=== PATIENT | female | born 1955 | race Caucasian/White ===

== ENCOUNTER 2016-10-16 15:26 | Emergency (ER) | payer BC ==
[2016-10-16] MEDS ORDERED: methylPREDNISolone INJ 125 MG/2 ML VIAL (J2930) As Ordered ONE (17:02)
[2016-10-16] MEDS ORDERED: MOXIFLOXACIN 400 MG/250 ML IV BAG (AVELOX) (J2280) As Ordered ONE (17:36)
[2016-10-16 17:44] LABS: BASO % 0.1 % (0.0-1.0); EOS # 0.1 K/mm3 (0.0-0.50); EOS % 0.5 % (0.0-3.0); LARGE UNSTAINED CELL # 0.1 K/mm3 (0.0-0.4); LARGE UNSTAINED CELL % 0.6 % (0.0-4.0); LYMPH # 0.9 K/mm3 (1.5-4.5); LYMPH % 4.6 % (24.0-44.0); MEAN CORPUSCULAR HEMOGLOBIN 33.6 pg (27.0-33.0); MEAN CORPUSCULAR HGB CONC 34.9 g/dl (32.0-36.5); MEAN CORPUSCULAR VOLUME 96.1 fl (80.0-96.0); MONO # 0.8 K/mm3 (0.0-0.8); MONO % 4.3 % (0.0-5.0); NEUTROPHILS # 17.4 K/mm3 (1.8-7.7); NEUTROPHILS % 89.8 % (36.0-66.0); PLATELET COUNT, AUTOMATED 329 k/mm3 (150-450); RED CELL DISTRIBUTION WIDTH 11.3 % (11.5-14.5); WHITE BLOOD COUNT 19.4 K/mm3 (4.0-10.0)
[2016-10-16 18:04] LABS: ANION GAP 11 MEQ/L (8-16); BLOOD UREA NITROGEN 12 MG/DL (7-18); CALCIUM LEVEL 9.4 MG/DL (8.5-10.1); CARBON DIOXIDE LEVEL 26 MEQ/L (21-32); CHLORIDE LEVEL 100 MEQ/L (98-107); CREATININE FOR GFR 0.86 MG/DL (0.55-1.02); GLOMERULAR FILTRATION RATE > 60.0 (>51); GLUCOSE, FASTING 102 MG/DL (70-105); POTASSIUM SERUM 3.1 MEQ/L (3.5-5.1); SODIUM LEVEL 137 MEQ/L (136-145)
[2016-10-16] MEDS ORDERED: POTASSIUM CHL PWD 20 MEQ PACKET As Ordered ONE (18:55)
--- NOTE | 2016-10-16 19:20 | EDDOCDS ---
Physician Documentation [facility] Name: Cheryl Muñoz Age: 61 yrs Sex: Female : 1955 Arrival Date: 10/16/2016 Time: 15:26 Bed I3 / M3 Private MD: Nicci Golden A Disposition: 10/16/16 19:10 Discharged to Home/Self Care. Impression: Pneumonia, unspecified organism, Hypokalemia. - Condition is Stable. - Discharge Instructions: Potassium Content of Foods, Pneumonia, Adult, [id number]. - Prescriptions for Moxifloxacin 400 mg Oral Tablet - take 1 tablet by ORAL route once daily; 10 tablet. - Medication Reconciliation, Local Pharmacy Hours form. - Follow up: Leon Boyd MD; When: 1 - 2 days; Reason: Further diagnostic work-up, Recheck today's complaints, Continuance of care. - Problem is new. - Symptoms are unchanged. Historical: - Allergies: no known allergies; - Home Meds: 1. q-rony 2. q-rony 80 inhaler twice a day (Last dose: 10/16/2016 05:00) 3. mutlivitamin daily (Last dose: 10/16/2016 05:00) 4. Iron CR 250 mg Oral cpER daily (Last dose: 10/16/2016 05:00) 5. Fish Oil Unknown Oral Unknown daily (Last dose: 10/16/2016 05:00) 6. Advil 200 mg Oral tab 3 tabs every 4 hours (Last dose: 10/16/2016 13:00) - PMHx: farmers lung disease; closed angle glaucoma; stage II melanoma (arm); - PSHx: Cesearean Section; eye surgery; - Social history: Smoking status: Patient states former smoker of tobacco. Patient/guardian denies using alcohol, street drugs, No barriers to communication noted, The patient speaks fluent Chinese, Speaks appropriately for age. - Family history: Not pertinent. - : The pt / caregiver states he / she is not on anticoagulants. Home medication list is obtained from the patient. - Exposure Risk Screening:: None identified. Vital Signs: 10/16 15:28 BP 169 / 80; Pulse 121; Resp 20; Temp 98.7(O); Pulse Ox 95% ; Weight 56.7 kg / 125 lbs; cmb Height 5 ft. 2 in. (157.48 cm); 19:11 BP 116 / 54; Pulse 103; Resp 18; Temp 98.6; Pulse Ox 94% ; Pain 0/10; ajs 15:28 Body Mass Index 22.86 (56.70 kg, 157.48 cm) cmb MDM: 16:51 IV Saline Lock ordered. ar2 16:51 -Blood Culture (Adults Only), peripheral from different site, or from device/port/PICC ar2 etc. if present ordered. 16:51 Solu-MEDROL 125 mg IVP once ordered. ar2 16:51 Moxifloxacin 400 mg IV at 400 mg/hr once over 60 mins ordered. ar2 16:51 NS 0.9% 1000 ml IV at bolus once ordered. ar2 16:52 CBC with Diff Ordered. EDMS 16:52 MED Profile Ordered. EDMS 16:52 -Blood Culture Ordered. EDMS 16:52 Outside Films for Reading Ordered. EDMS 16:57 -Blood Culture (Adults Only), peripheral from different site, or from device/port/PICC jrd etc. if present complete. 16:59 BLOOD CULTURES Ordered. EDMS 17:01 Lactic Acid (Villegas tube on ice) Ordered. EDMS 17:11 Financial registration complete. b 17:16 [facility] Payment Agreement was scanned into [employer] ([employer]) and attached to record. gjb 18:02 CBC with Diff Reviewed. ar2 18:33 MED Profile Reviewed. btw 18:33 Lactic Acid (Villegas tube on ice) Reviewed. btw 18:49 Potassium Chloride Packet 20 mEq PO once ordered. btw Administered Medications: 17:32 Drug: Solu-MEDROL 125 mg [Solu-Medrol 500 mg intravenous solution (125 mg)] Route: IVP; kc3 Site: left forearm; 17:32 Drug: NS 0.9% 1000 ml [sodium chloride 0.9 % intravenous solution] Route: IV; Rate: kc3 bolus; Site: left forearm; 19:17 Follow up: IV Status: Infusion discontinued ck1 17:44 Drug: Moxifloxacin 400 mg [moxifloxacin 400 mg/250 mL-sodium chloride(iso) intravenous kc3 piggyback] Route: IV; Rate: 400 mg/hr; Infused Over: 60 mins; Site: left forearm; 18:58 Drug: Potassium Chloride 20 mEq [potassium chloride 20 mEq oral packet (1 packets)] ck1 Route: PO; Signatures: Dispatcher [employer] EDMS Ana Troy RN RN ck1 Parvez De oSuza PA-C PAMandi ar2 Adam Chavarria PA PA btw Lenora Vasquez RN RN ttb Edilberto Perea, MUSIC RESEARCHER MUSIC RESEARCHER jrd Yana Sandy RN RN kc3 Kimberly Trujillo The chart was reviewed and I authenticate all verbal orders and agree with the evaluation and treatment provided.Corrections: (The following items were deleted from the chart) 17:04 16:52 LACTIC ACID LEVEL, LACTATE+LAB ordered. EDMS EDMS Attachments: 17:16 [facility] [place] [facility] [place] Agreement gjjoshua MTDD
--- NOTE | 2016-10-16 19:20 | EDDOCDS ---
Nurse's Notes [facility] Name: Cheryl Muñoz Age: 61 yrs Sex: Female : 1955 Arrival Date: 10/16/2016 Time: 15:26 Bed I3 / M3 Private MD: Nicci Golden A Diagnosis: Pneumonia, unspecified organism;Hypokalemia Presentation: 10/16 15:36 Presenting complaint: Patient states: sent for for "blood work and steroids". Cold ttb last week and cough x1 week. Productive cough. Some SOB. Denies pain. Nasal congestion x2 weeks. Adult Sepsis Screening: The patient does not have new or worsening altered mentation. Patient's respiratory rate is less than 22. Systolic blood pressure is greater than 100. Patient has a qSOFA score of 0- Negative Sepsis Screen. Suicide/Homicide risk assessment- the patient denies having any suicidal and/or homicidal ideations and does not present with any other emotional, behavioral or mental health complaints. Status: Patient is not a marine service manager or dependent. Transition of care: patient was not received from another setting of care. 15:36 Acuity: NOELLE Level 4 ttb 15:36 Method Of Arrival: Walkin/Carried/Asstd ttb Triage Assessment: 15:43 General: Appears in no apparent distress, well nourished, well groomed, Behavior is ttb appropriate for age, cooperative, pleasant. Pain: Denies pain. HIV screening NA for this visit Offered previously. Neurological: Level of Consciousness is awake, alert. EENT: Reports nasal congestion nasal discharge. Cardiovascular: Chest pain is denied. Respiratory: Airway is patent Respiratory effort is even, unlabored, Reports shortness of breath cough that is productive, the patient has mild shortness of breath. GI: Denies nausea, vomiting, pain. Derm: Skin is normal. Historical: - Allergies: no known allergies; - Home Meds: 1. q-rony 2. q-rony 80 inhaler twice a day (Last dose: 10/16/2016 05:00) 3. mutlivitamin daily (Last dose: 10/16/2016 05:00) 4. Iron CR 250 mg Oral cpER daily (Last dose: 10/16/2016 05:00) 5. Fish Oil Unknown Oral Unknown daily (Last dose: 10/16/2016 05:00) 6. Advil 200 mg Oral tab 3 tabs every 4 hours (Last dose: 10/16/2016 13:00) - PMHx: farmers lung disease; closed angle glaucoma; stage II melanoma (arm); - PSHx: Cesearean Section; eye surgery; - Social history: Smoking status: Patient states former smoker of tobacco. Patient/guardian denies using alcohol, street drugs, No barriers to communication noted, The patient speaks fluent Mongolian, Speaks appropriately for age. - Family history: Not pertinent. - : The pt / caregiver states he / she is not on anticoagulants. Home medication list is obtained from the patient. - Exposure Risk Screening:: None identified. Screenin:33 Screening information is obtained from the patient. Fall risk: No risks identified. kc3 Assistance ADL's: requires no assistance with activities of daily living. Abuse/DV Screen: The patient / caregiver reports he/she is: not in a situation that causes fear, pain or injury. Nutritional screening: No deficits noted. Advance Directives: Currently, there is no health care proxy. home support is adequate. Assessment: 17:32 General: Appears in no apparent distress, comfortable, Behavior is appropriate for age, kc3 cooperative. Pain: Denies pain. Neurological: Level of Consciousness is awake, alert, obeys commands, Oriented to person, place, time. EENT: Reports nasal congestion. Respiratory: Respiratory effort is even, unlabored, Reports cough that is productive. Derm: Skin is pink, warm & dry. 18:16 General: Appears in no apparent distress, comfortable, Behavior is appropriate for age, ck1 cooperative. Pain: Denies pain. Neurological: Level of Consciousness is awake, alert, obeys commands, Oriented to person, place, time. Respiratory: Respiratory effort is even, unlabored. GI: Denies nausea, vomiting. Derm: Skin is pink, warm & dry. 19:18 General: Appears in no apparent distress, comfortable, Behavior is appropriate for age, ck1 cooperative. Pain: Denies pain. Neurological: Level of Consciousness is awake, alert, obeys commands, Oriented to person, place, time. Respiratory: Respiratory effort is unlabored, Respiratory pattern is regular, symmetrical. GI: No deficits noted. Derm: Skin is pink, warm & dry. Vital Signs: 15:28 BP 169 / 80; Pulse 121; Resp 20; Temp 98.7(O); Pulse Ox 95% ; Weight 56.7 kg; Height 5 cmb ft. 2 in. (157.48 cm); 19:11 BP 116 / 54; Pulse 103; Resp 18; Temp 98.6; Pulse Ox 94% ; Pain 0/10; ajs 15:28 Body Mass Index 22.86 (56.70 kg, 157.48 cm) cmb Vitals: 15:28 Log In Time: October 16, 2016 at 15:26. cmb ED Course: 15:28 Patient visited by Lindsey Gray. cmb 15:28 Nicci Golden is Private Physician. cmb 15:28 Patient moved to Waiting cmb 15:29 Patient moved to Pre RCE cmb 15:38 Triage Initiated ttb 16:06 Patient moved to Triage 2 mlb1 16:23 Parvez De Souza PA-C is PHCP. ar2 16:23 Cristofer Sanchez MD is Attending Physician. ar2 16:30 Patient visited by Parvez De Souza PA-C. ar2 16:53 Patient moved to I3 / M3 jf3 17:02 Patient visited by Ana Troy,DAVID. ck1 17:16 [facility] Payment Agreement was scanned into [employer] and attached to record. gjb 17:26 Patient name changed from Cheryl\\S\\\\S\\[place]\\S\\ to Cheryl\\S\\ \\S\\[place]. EDMS 17:31 BLOOD CULTURES Sent. kc3 17:31 Lactic Acid (Villegas tube on ice) Sent. kc3 17:32 -Blood Culture Sent. kc3 17:32 MED Profile Sent. kc3 17:32 CBC with Diff Sent. kc3 17:33 The patient / caregiver is instructed regarding the plan of care and ED course. kc3 17:33 Inserted saline lock: 20 gauge in left forearm and blood collected. The patient kc3 tolerated the procedure well. 17:34 Patient visited by Yana Sandy,DAVID. kc3 18:04 Patient visited by Ana Troy,RN. ck1 18:06 PHCP role handed off by Parvez De Souza PA-C btw 18:06 Adam Chavarria PA is PHCP. btw 18:38 Patient visited by Ana Troy,DAVID. ck1 18:58 Patient visited by Ana Troy,DAVID. ck1 19:10 Leon Boyd MD is Referral Physician. btw 19:11 Patient visited by Jaclyn Carrasco. ajs 19:17 Discontinued lock intact, bleeding controlled, pressure dressing applied, No ck1 redness/swelling at site. No procedures done that require assistance. Administered Medications: 17:32 Drug: Solu-MEDROL 125 mg [Solu-Medrol 500 mg intravenous solution (125 mg)] Route: IVP; kc3 Site: left forearm; 17:32 Drug: NS 0.9% 1000 ml [sodium chloride 0.9 % intravenous solution] Route: IV; Rate: kc3 bolus; Site: left forearm; 19:17 Follow up: IV Status: Infusion discontinued ck1 17:44 Drug: Moxifloxacin 400 mg [moxifloxacin 400 mg/250 mL-sodium chloride(iso) intravenous kc3 piggyback] Route: IV; Rate: 400 mg/hr; Infused Over: 60 mins; Site: left forearm; 18:58 Drug: Potassium Chloride 20 mEq [potassium chloride 20 mEq oral packet (1 packets)] ck1 Route: PO; Order Results: Lab Order: CBC with Diff; SPEC'M 10/16/16 17:22 Test: WHITE BLOOD COUNT; Value: 19.4; Range: 4.0-10.0; Abnormal: Above high normal; Units: K/mm3; Status: F Test: RED BLOOD COUNT; Value: 4.15; Range: 4.00-5.40; Units: M/mm3; Status: F Test: HEMOGLOBIN; Value: 13.9; Range: 12.0-16.0; Units: g/dl; Status: F Test: HEMATOCRIT; Value: 39.9; Range: 36.0-47.0; Units: %; Status: F Test: MEAN CORPUSCULAR VOLUME; Value: 96.1; Range: 80.0-96.0; Abnormal: Above high normal; Units: fl; Status: F Test: MEAN CORPUSCULAR HEMOGLOBIN; Value: 33.6; Range: 27.0-33.0; Abnormal: Above high normal; Units: pg; Status: F Test: MEAN CORPUSCULAR HGB CONC; Value: 34.9; Range: 32.0-36.5; Units: g/dl; Status: F Test: RED CELL DISTRIBUTION WIDTH; Value: 11.3; Range: 11.5-14.5; Abnormal: Below low normal; Units: %; Status: F Test: PLATELET COUNT, AUTOMATED; Value: 329; Range: 150-450; Units: k/mm3; Status: F Test: NEUTROPHILS %; Value: 89.8; Range: 36.0-66.0; Abnormal: Above high normal; Units: %; Status: F Test: LYMPH %; Value: 4.6; Range: 24.0-44.0; Abnormal: Below low normal; Units: %; Status: F Test: MONO %; Value: 4.3; Range: 0.0-5.0; Units: %; Status: F Test: EOS %; Value: 0.5; Range: 0.0-3.0; Units: %; Status: F Test: BASO %; Value: 0.1; Range: 0.0-1.0; Units: %; Status: F Test: LARGE UNSTAINED CELL %; Value: 0.6; Range: 0.0-4.0; Units: %; Status: F Test: NEUTROPHILS #; Value: 17.4; Range: 1.8-7.7; Abnormal: Above high normal; Units: K/mm3; Status: F Test: LYMPH #; Value: 0.9; Range: 1.5-4.5; Abnormal: Below low normal; Units: K/mm3; Status: F Test: MONO #; Value: 0.8; Range: 0.0-0.8; Units: K/mm3; Status: F Test: EOS #; Value: 0.1; Range: 0.0-0.50; Units: K/mm3; Status: F Test: BASO #; Value: 0.0; Range: 0.0-0.2; Units: K/mm3; Status: F Test: LARGE UNSTAINED CELL #; Value: 0.1; Range: 0.0-0.4; Units: K/mm3; Status: F Lab Order: MED Profile; SPEC'M 10/16/16 17:22 Test: GLUCOSE, FASTING; Value: 102; Range: 70-105; Units: MG/DL; Status: F Test: BLOOD UREA NITROGEN; Value: 12; Range: 7-18; Units: MG/DL; Status: F Test: CREATININE FOR GFR; Value: 0.86; Range: 0.55-1.02; Units: MG/DL; Status: F Test: GLOMERULAR FILTRATION RATE; Value: > 60.0; Range: >51; Status: F Test: SODIUM LEVEL; Value: 137; Range: 136-145; Units: MEQ/L; Status: F Test: POTASSIUM SERUM; Value: 3.1; Range: 3.5-5.1; Abnormal: Below low normal; Units: MEQ/L; Status: F Test: CHLORIDE LEVEL; Value: 100; Range: 98-107; Units: MEQ/L; Status: F Test: CARBON DIOXIDE LEVEL; Value: 26; Range: 21-32; Units: MEQ/L; Status: F Test: ANION GAP; Value: 11; Range: 8-16; Units: MEQ/L; Status: F Test: CALCIUM LEVEL; Value: 9.4; Range: 8.5-10.1; Units: MG/DL; Status: F Test Note: ; Units are mL/min/1.73 m2 Chronic Kidney Disease Staging per NKF: Stage I & II GFR >=60 Normal to Mildly Decreased Stage III GFR 30-59 Moderately Decreased Stage IV GFR 15-29 Severely Decreased Stage V GFR <15 Very Little GFR Left ESRD GFR <15 on CLOTH FINISHING RANGE OPERATOR CHIEF Lab Order: Lactic Acid (Villegas tube on ice); SPEC'M 10/16/16 17:22 Test: LACTIC ACID LEVEL, LACTATE; Value: 1.3; Range: 0.4-2.0; Units: MMOL/L; Status: F Outcome: 19:10 Discharge ordered by Provider. btw 19:17 Discharge Assessment: Patient awake, alert and oriented x 3. No cognitive and/or ck1 functional deficits noted. Patient verbalized understanding of disposition instructions. patient administered narcotics - no. The following High Risk Discharge criteria are identified: None. Discharged to home ambulatory. Condition: stable. Discharge instructions given to patient, Instructed on discharge instructions, follow up and referral plans. medication usage, Demonstrated understanding of instructions, medications, Pt was receptive of discharge instructions/ teaching. Prescriptions given X 1. No special radiology studies were completed. Property :Personal belongings accompany Pt. 19:18 Patient left the ED. ck1 Signatures: Dispatcher [employer] EDMS Darryn Parisi RN RN mlb1 Ana TroyRN RN ck1 Parvez De Souza PA-C PA-C ar2 Adam Chavarria PA PA btJaclyn Cornejo [place] cmb Conner, Teresa, RN RN ttb Yana Sandy RN RN kc3 Lamont Diaz RN RN jf3 Kimberly Trujillo MTDD
--- NOTE | 2016-10-18 20:19 | EDDOCDS ---
Physician Documentation [facility] Name: Cheryl Muñoz Age: 61 yrs Sex: Female : 1955 Arrival Date: 10/16/2016 Time: 15:26 Bed I3 / M3 Private MD: Nicci Golden A Disposition: 10/16/16 19:10 Discharged to Home/Self Care. Impression: Pneumonia, unspecified organism, Hypokalemia. - Condition is Stable. - Discharge Instructions: Potassium Content of Foods, Pneumonia, Adult, [id number]. - Prescriptions for Moxifloxacin 400 mg Oral Tablet - take 1 tablet by ORAL route once daily; 10 tablet. - Medication Reconciliation, Local Pharmacy Hours form. - Follow up: Leon Boyd MD; When: 1 - 2 days; Reason: Further diagnostic work-up, Recheck today's complaints, Continuance of care. - Problem is new. - Symptoms are unchanged. Historical: - Allergies: no known allergies; - Home Meds: 1. q-rony 2. q-rony 80 inhaler twice a day (Last dose: 10/16/2016 05:00) 3. mutlivitamin daily (Last dose: 10/16/2016 05:00) 4. Iron CR 250 mg Oral cpER daily (Last dose: 10/16/2016 05:00) 5. Fish Oil Unknown Oral Unknown daily (Last dose: 10/16/2016 05:00) 6. Advil 200 mg Oral tab 3 tabs every 4 hours (Last dose: 10/16/2016 13:00) - PMHx: farmers lung disease; closed angle glaucoma; stage II melanoma (arm); - PSHx: Cesearean Section; eye surgery; - Social history: Smoking status: Patient states former smoker of tobacco. Patient/guardian denies using alcohol, street drugs, No barriers to communication noted, The patient speaks fluent Arabic, Speaks appropriately for age. - Family history: Not pertinent. - : The pt / caregiver states he / she is not on anticoagulants. Home medication list is obtained from the patient. - Exposure Risk Screening:: None identified. Vital Signs: 10/16 15:28 BP 169 / 80; Pulse 121; Resp 20; Temp 98.7(O); Pulse Ox 95% ; Weight 56.7 kg / 125 lbs; cmb Height 5 ft. 2 in. (157.48 cm); 19:11 BP 116 / 54; Pulse 103; Resp 18; Temp 98.6; Pulse Ox 94% ; Pain 0/10; ajs 15:28 Body Mass Index 22.86 (56.70 kg, 157.48 cm) cmb MDM: 16:51 IV Saline Lock ordered. ar2 16:51 -Blood Culture (Adults Only), peripheral from different site, or from device/port/PICC ar2 etc. if present ordered. 16:51 Solu-MEDROL 125 mg IVP once ordered. ar2 16:51 Moxifloxacin 400 mg IV at 400 mg/hr once over 60 mins ordered. ar2 16:51 NS 0.9% 1000 ml IV at bolus once ordered. ar2 16:52 CBC with Diff Ordered. EDMS 16:52 MED Profile Ordered. EDMS 16:52 -Blood Culture Ordered. EDMS 16:52 Outside Films for Reading Ordered. EDMS 16:57 -Blood Culture (Adults Only), peripheral from different site, or from device/port/PICC jrd etc. if present complete. 16:59 BLOOD CULTURES Ordered. EDMS 17:01 Lactic Acid (Villegas tube on ice) Ordered. EDMS 17:11 Financial registration complete. gjb 17:16 [facility] Payment Agreement was scanned into [employer] and attached to record. gjb 18:02 CBC with Diff Reviewed. ar2 18:33 MED Profile Reviewed. btw 18:33 Lactic Acid (Villegas tube on ice) Reviewed. btw 18:49 Potassium Chloride Packet 20 mEq PO once ordered. btw 10/17 09:00 T-Sheet-- Draft Copy was scanned into [employer] and attached to record. gb Administered Medications: 10/16 17:32 Drug: Solu-MEDROL 125 mg [Solu-Medrol 500 mg intravenous solution (125 mg)] Route: IVP; kc3 Site: left forearm; 17:32 Drug: NS 0.9% 1000 ml [sodium chloride 0.9 % intravenous solution] Route: IV; Rate: kc3 bolus; Site: left forearm; 19:17 Follow up: IV Status: Infusion discontinued ck1 17:44 Drug: Moxifloxacin 400 mg [moxifloxacin 400 mg/250 mL-sodium chloride(iso) intravenous kc3 piggyback] Route: IV; Rate: 400 mg/hr; Infused Over: 60 mins; Site: left forearm; 18:58 Drug: Potassium Chloride 20 mEq [potassium chloride 20 mEq oral packet (1 packets)] ck1 Route: PO; Signatures: Dispatcher [employer] EDMS Delia Zayas, Reg Reg gb Ana TroyRN RN ck1 Parvez De Souza PA-C PAMandi ar2 Adam Chavarria PA PA btw Conner, Teresa, RN RN ttb Edilberto Perea, SENTHIL CUSTOMER EXPERIENCE STRATEGIST jrd Yana Sandy RN RN kc3 Kimberly Trujillo The chart was reviewed and I authenticate all verbal orders and agree with the evaluation and treatment provided.Corrections: (The following items were deleted from the chart) 17:04 16:52 LACTIC ACID LEVEL, LACTATE+LAB ordered. EDMS EDMS Attachments: 17:16 [facility] Payment Agreement gjb 10/17 09:00 T-Sheet-- Draft Copy gb Chart Complete MTDD
--- NOTE | 2016-10-18 20:19 | EDDOCDS ---
Physician Documentation [facility] Name: Cheryl Muñoz Age: 61 yrs Sex: Female : 1955 Arrival Date: 10/16/2016 Time: 15:26 Bed I3 / M3 Private MD: Nicci Golden A Disposition: 10/16/16 19:10 Discharged to Home/Self Care. Impression: Pneumonia, unspecified organism, Hypokalemia. - Condition is Stable. - Discharge Instructions: Potassium Content of Foods, Pneumonia, Adult, [id number]-[id number]. - Prescriptions for Moxifloxacin 400 mg Oral Tablet - take 1 tablet by ORAL route once daily; 10 tablet. - Medication Reconciliation, Local Pharmacy Hours form. - Follow up: Leon Boyd MD; When: 1 - 2 days; Reason: Further diagnostic work-up, Recheck today's complaints, Continuance of care. - Problem is new. - Symptoms are unchanged. Historical: - Allergies: no known allergies; - Home Meds: 1. q-rony 2. q-rony 80 inhaler twice a day (Last dose: 10/16/2016 05:00) 3. mutlivitamin daily (Last dose: 10/16/2016 05:00) 4. Iron CR 250 mg Oral cpER daily (Last dose: 10/16/2016 05:00) 5. Fish Oil Unknown Oral Unknown daily (Last dose: 10/16/2016 05:00) 6. Advil 200 mg Oral tab 3 tabs every 4 hours (Last dose: 10/16/2016 13:00) - PMHx: farmers lung disease; closed angle glaucoma; stage II melanoma (arm); - PSHx: Cesearean Section; eye surgery; - Social history: Smoking status: Patient states former smoker of tobacco. Patient/guardian denies using alcohol, street drugs, No barriers to communication noted, The patient speaks fluent Malay, Speaks appropriately for age. - Family history: Not pertinent. - : The pt / caregiver states he / she is not on anticoagulants. Home medication list is obtained from the patient. - Exposure Risk Screening:: None identified. Vital Signs: 10/16 15:28 BP 169 / 80; Pulse 121; Resp 20; Temp 98.7(O); Pulse Ox 95% ; Weight 56.7 kg / 125 lbs; cmb Height 5 ft. 2 in. (157.48 cm); 19:11 BP 116 / 54; Pulse 103; Resp 18; Temp 98.6; Pulse Ox 94% ; Pain 0/10; ajs 15:28 Body Mass Index 22.86 (56.70 kg, 157.48 cm) cmb MDM: 16:51 IV Saline Lock ordered. ar2 16:51 -Blood Culture (Adults Only), peripheral from different site, or from device/port/PICC ar2 etc. if present ordered. 16:51 Solu-MEDROL 125 mg IVP once ordered. ar2 16:51 Moxifloxacin 400 mg IV at 400 mg/hr once over 60 mins ordered. ar2 16:51 NS 0.9% 1000 ml IV at bolus once ordered. ar2 16:52 CBC with Diff Ordered. EDMS 16:52 MED Profile Ordered. EDMS 16:52 -Blood Culture Ordered. EDMS 16:52 Outside Films for Reading Ordered. EDMS 16:57 -Blood Culture (Adults Only), peripheral from different site, or from device/port/PICC jrd etc. if present complete. 16:59 BLOOD CULTURES Ordered. EDMS 17:01 Lactic Acid (Villegas tube on ice) Ordered. EDMS 17:11 Financial registration complete. gjb 17:16 [facility] Payment Agreement was scanned into [employer] and attached to record. gjb 18:02 CBC with Diff Reviewed. ar2 18:33 MED Profile Reviewed. btw 18:33 Lactic Acid (Villegas tube on ice) Reviewed. btw 18:49 Potassium Chloride Packet 20 mEq PO once ordered. btw 10/17 09:00 T-Sheet-- Draft Copy was scanned into [employer] and attached to record. gb Administered Medications: 10/16 17:32 Drug: Solu-MEDROL 125 mg [Solu-Medrol 500 mg intravenous solution (125 mg)] Route: IVP; kc3 Site: left forearm; 17:32 Drug: NS 0.9% 1000 ml [sodium chloride 0.9 % intravenous solution] Route: IV; Rate: kc3 bolus; Site: left forearm; 19:17 Follow up: IV Status: Infusion discontinued ck1 17:44 Drug: Moxifloxacin 400 mg [moxifloxacin 400 mg/250 mL-sodium chloride(iso) intravenous kc3 piggyback] Route: IV; Rate: 400 mg/hr; Infused Over: 60 mins; Site: left forearm; 18:58 Drug: Potassium Chloride 20 mEq [potassium chloride 20 mEq oral packet (1 packets)] ck1 Route: PO; Signatures: Dispatcher [employer] EDMS Delia Zayas, Reg Reg gb Ana TroyRN RN ck1 Parvez De Souza PA-C PAMandi ar2 Adam Chavarria PA PA btw Conner, Teresa, RN RN ttb Edilberto Perea, SNETHIL VOCATIONAL EDUCATION TEACHER jrd Yana Sandy RN RN kc3 Kimberly Trujillo The chart was reviewed and I authenticate all verbal orders and agree with the evaluation and treatment provided.Corrections: (The following items were deleted from the chart) 17:04 16:52 LACTIC ACID LEVEL, LACTATE+LAB ordered. EDMS EDMS Attachments: 17:16 [facility] Payment Agreement gjb 10/17 09:00 T-Sheet-- Draft Copy gb Chart Complete MTDD
--- NOTE | 2016-10-18 20:19 | EDDOCDS ---
Nurse's Notes [facility] Name: Cheryl Muñoz Age: 61 yrs Sex: Female : 1955 Arrival Date: 10/16/2016 Time: 15:26 Bed I3 / M3 Private MD: Nicci Golden A Diagnosis: Pneumonia, unspecified organism;Hypokalemia Presentation: 10/16 15:36 Presenting complaint: Patient states: sent for for "blood work and steroids". Cold ttb last week and cough x1 week. Productive cough. Some SOB. Denies pain. Nasal congestion x2 weeks. Adult Sepsis Screening: The patient does not have new or worsening altered mentation. Patient's respiratory rate is less than 22. Systolic blood pressure is greater than 100. Patient has a qSOFA score of 0- Negative Sepsis Screen. Suicide/Homicide risk assessment- the patient denies having any suicidal and/or homicidal ideations and does not present with any other emotional, behavioral or mental health complaints. Status: Patient is not a support services rep or dependent. Transition of care: patient was not received from another setting of care. 15:36 Acuity: NOELLE Level 4 ttb 15:36 Method Of Arrival: Walkin/Carried/Asstd ttb Triage Assessment: 15:43 General: Appears in no apparent distress, well nourished, well groomed, Behavior is ttb appropriate for age, cooperative, pleasant. Pain: Denies pain. HIV screening NA for this visit Offered previously. Neurological: Level of Consciousness is awake, alert. EENT: Reports nasal congestion nasal discharge. Cardiovascular: Chest pain is denied. Respiratory: Airway is patent Respiratory effort is even, unlabored, Reports shortness of breath cough that is productive, the patient has mild shortness of breath. GI: Denies nausea, vomiting, pain. Derm: Skin is normal. Historical: - Allergies: no known allergies; - Home Meds: 1. q-rony 2. q-rony 80 inhaler twice a day (Last dose: 10/16/2016 05:00) 3. mutlivitamin daily (Last dose: 10/16/2016 05:00) 4. Iron CR 250 mg Oral cpER daily (Last dose: 10/16/2016 05:00) 5. Fish Oil Unknown Oral Unknown daily (Last dose: 10/16/2016 05:00) 6. Advil 200 mg Oral tab 3 tabs every 4 hours (Last dose: 10/16/2016 13:00) - PMHx: farmers lung disease; closed angle glaucoma; stage II melanoma (arm); - PSHx: Cesearean Section; eye surgery; - Social history: Smoking status: Patient states former smoker of tobacco. Patient/guardian denies using alcohol, street drugs, No barriers to communication noted, The patient speaks fluent Albanian, Speaks appropriately for age. - Family history: Not pertinent. - : The pt / caregiver states he / she is not on anticoagulants. Home medication list is obtained from the patient. - Exposure Risk Screening:: None identified. Screenin:33 Screening information is obtained from the patient. Fall risk: No risks identified. kc3 Assistance ADL's: requires no assistance with activities of daily living. Abuse/DV Screen: The patient / caregiver reports he/she is: not in a situation that causes fear, pain or injury. Nutritional screening: No deficits noted. Advance Directives: Currently, there is no health care proxy. home support is adequate. Assessment: 17:32 General: Appears in no apparent distress, comfortable, Behavior is appropriate for age, kc3 cooperative. Pain: Denies pain. Neurological: Level of Consciousness is awake, alert, obeys commands, Oriented to person, place, time. EENT: Reports nasal congestion. Respiratory: Respiratory effort is even, unlabored, Reports cough that is productive. Derm: Skin is pink, warm & dry. 18:16 General: Appears in no apparent distress, comfortable, Behavior is appropriate for age, ck1 cooperative. Pain: Denies pain. Neurological: Level of Consciousness is awake, alert, obeys commands, Oriented to person, place, time. Respiratory: Respiratory effort is even, unlabored. GI: Denies nausea, vomiting. Derm: Skin is pink, warm & dry. 19:18 General: Appears in no apparent distress, comfortable, Behavior is appropriate for age, ck1 cooperative. Pain: Denies pain. Neurological: Level of Consciousness is awake, alert, obeys commands, Oriented to person, place, time. Respiratory: Respiratory effort is unlabored, Respiratory pattern is regular, symmetrical. GI: No deficits noted. Derm: Skin is pink, warm & dry. Vital Signs: 15:28 BP 169 / 80; Pulse 121; Resp 20; Temp 98.7(O); Pulse Ox 95% ; Weight 56.7 kg; Height 5 cmb ft. 2 in. (157.48 cm); 19:11 BP 116 / 54; Pulse 103; Resp 18; Temp 98.6; Pulse Ox 94% ; Pain 0/10; ajs 15:28 Body Mass Index 22.86 (56.70 kg, 157.48 cm) cmb Vitals: 15:28 Log In Time: October 16, 2016 at 15:26. cmb ED Course: 15:28 Patient visited by Lindsey Gray. cmb 15:28 Nicci Golden is Private Physician. cmb 15:28 Patient moved to Waiting cmb 15:29 Patient moved to Pre RCE cmb 15:38 Triage Initiated ttb 16:06 Patient moved to Triage 2 mlb1 16:23 Parvez De Souza PA-C is PHCP. ar2 16:23 Cristofer Sanchez MD is Attending Physician. ar2 16:30 Patient visited by Parvez De Souza PA-C. ar2 16:53 Patient moved to I3 / M3 jf3 17:02 Patient visited by Ana Troy,DAVID. ck1 17:16 [facility] Payment Agreement was scanned into [employer] and attached to record. gjb 17:26 Patient name changed from Cheryl\\S\\\\S\\[place]\\S\\ to Cheryl\\S\\ \\S\\[place]. EDMS 17:31 BLOOD CULTURES Sent. kc3 17:31 Lactic Acid (Villegas tube on ice) Sent. kc3 17:32 -Blood Culture Sent. kc3 17:32 MED Profile Sent. kc3 17:32 CBC with Diff Sent. kc3 17:33 The patient / caregiver is instructed regarding the plan of care and ED course. kc3 17:33 Inserted saline lock: 20 gauge in left forearm and blood collected. The patient kc3 tolerated the procedure well. 17:34 Patient visited by Yana Sandy,DAVID. kc3 18:04 Patient visited by Ana Troy,RN. ck1 18:06 PHCP role handed off by Parvez De Souza PA-C btw 18:06 Adam Chavarria PA is PHCP. btw 18:38 Patient visited by Ana Troy,RN. ck1 18:58 Patient visited by Ana Troy,DAVID. ck1 19:10 Leon Boyd MD is Referral Physician. btw 19:11 Patient visited by Jaclyn Carrasco. ajs 19:17 Discontinued lock intact, bleeding controlled, pressure dressing applied, No ck1 redness/swelling at site. No procedures done that require assistance. 10/17 09:00 T-Sheet-- Draft Copy was scanned into [employer] and attached to record. gb Administered Medications: 10/16 17:32 Drug: Solu-MEDROL 125 mg [Solu-Medrol 500 mg intravenous solution (125 mg)] Route: IVP; kc3 Site: left forearm; 17:32 Drug: NS 0.9% 1000 ml [sodium chloride 0.9 % intravenous solution] Route: IV; Rate: kc3 bolus; Site: left forearm; 19:17 Follow up: IV Status: Infusion discontinued ck1 17:44 Drug: Moxifloxacin 400 mg [moxifloxacin 400 mg/250 mL-sodium chloride(iso) intravenous kc3 piggyback] Route: IV; Rate: 400 mg/hr; Infused Over: 60 mins; Site: left forearm; 18:58 Drug: Potassium Chloride 20 mEq [potassium chloride 20 mEq oral packet (1 packets)] ck1 Route: PO; Order Results: Lab Order: CBC with Diff; SPEC'M 10/16/16 17:22 Test: WHITE BLOOD COUNT; Value: 19.4; Range: 4.0-10.0; Abnormal: Above high normal; Units: K/mm3; Status: F Test: RED BLOOD COUNT; Value: 4.15; Range: 4.00-5.40; Units: M/mm3; Status: F Test: HEMOGLOBIN; Value: 13.9; Range: 12.0-16.0; Units: g/dl; Status: F Test: HEMATOCRIT; Value: 39.9; Range: 36.0-47.0; Units: %; Status: F Test: MEAN CORPUSCULAR VOLUME; Value: 96.1; Range: 80.0-96.0; Abnormal: Above high normal; Units: fl; Status: F Test: MEAN CORPUSCULAR HEMOGLOBIN; Value: 33.6; Range: 27.0-33.0; Abnormal: Above high normal; Units: pg; Status: F Test: MEAN CORPUSCULAR HGB CONC; Value: 34.9; Range: 32.0-36.5; Units: g/dl; Status: F Test: RED CELL DISTRIBUTION WIDTH; Value: 11.3; Range: 11.5-14.5; Abnormal: Below low normal; Units: %; Status: F Test: PLATELET COUNT, AUTOMATED; Value: 329; Range: 150-450; Units: k/mm3; Status: F Test: NEUTROPHILS %; Value: 89.8; Range: 36.0-66.0; Abnormal: Above high normal; Units: %; Status: F Test: LYMPH %; Value: 4.6; Range: 24.0-44.0; Abnormal: Below low normal; Units: %; Status: F Test: MONO %; Value: 4.3; Range: 0.0-5.0; Units: %; Status: F Test: EOS %; Value: 0.5; Range: 0.0-3.0; Units: %; Status: F Test: BASO %; Value: 0.1; Range: 0.0-1.0; Units: %; Status: F Test: LARGE UNSTAINED CELL %; Value: 0.6; Range: 0.0-4.0; Units: %; Status: F Test: NEUTROPHILS #; Value: 17.4; Range: 1.8-7.7; Abnormal: Above high normal; Units: K/mm3; Status: F Test: LYMPH #; Value: 0.9; Range: 1.5-4.5; Abnormal: Below low normal; Units: K/mm3; Status: F Test: MONO #; Value: 0.8; Range: 0.0-0.8; Units: K/mm3; Status: F Test: EOS #; Value: 0.1; Range: 0.0-0.50; Units: K/mm3; Status: F Test: BASO #; Value: 0.0; Range: 0.0-0.2; Units: K/mm3; Status: F Test: LARGE UNSTAINED CELL #; Value: 0.1; Range: 0.0-0.4; Units: K/mm3; Status: F Lab Order: MED Profile; SPEC'M 10/16/16 17:22 Test: GLUCOSE, FASTING; Value: 102; Range: 70-105; Units: MG/DL; Status: F Test: BLOOD UREA NITROGEN; Value: 12; Range: 7-18; Units: MG/DL; Status: F Test: CREATININE FOR GFR; Value: 0.86; Range: 0.55-1.02; Units: MG/DL; Status: F Test: GLOMERULAR FILTRATION RATE; Value: > 60.0; Range: >51; Status: F Test: SODIUM LEVEL; Value: 137; Range: 136-145; Units: MEQ/L; Status: F Test: POTASSIUM SERUM; Value: 3.1; Range: 3.5-5.1; Abnormal: Below low normal; Units: MEQ/L; Status: F Test: CHLORIDE LEVEL; Value: 100; Range: 98-107; Units: MEQ/L; Status: F Test: CARBON DIOXIDE LEVEL; Value: 26; Range: 21-32; Units: MEQ/L; Status: F Test: ANION GAP; Value: 11; Range: 8-16; Units: MEQ/L; Status: F Test: CALCIUM LEVEL; Value: 9.4; Range: 8.5-10.1; Units: MG/DL; Status: F Test Note: ; Units are mL/min/1.73 m2 Chronic Kidney Disease Staging per NKF: Stage I & II GFR >=60 Normal to Mildly Decreased Stage III GFR 30-59 Moderately Decreased Stage IV GFR 15-29 Severely Decreased Stage V GFR <15 Very Little GFR Left ESRD GFR <15 on SCREW DOWN Lab Order: -Blood Culture; SPEC'M 10/16/16 17:22 Test: BLOOD CULTURE; Value: No growth after 24 hours . All specimens observed; Status: F Test: BLOOD CULTURE; Value: for 5 days. Results final at that time.; Status: F Test: BLOOD CULTURE; Value: No Growth after 48 hours. All Specimens observed; Status: F Test: BLOOD CULTURE; Value: for 7 days. Results final at that time.; Status: F Lab Order: BLOOD CULTURES; SPEC'M 10/16/16 17:22 Test: BLOOD CULTURE; Value: No growth after 24 hours . All specimens observed; Status: F Test: BLOOD CULTURE; Value: for 5 days. Results final at that time.; Status: F Test: BLOOD CULTURE; Value: No Growth after 48 hours. All Specimens observed; Status: F Test: BLOOD CULTURE; Value: for 7 days. Results final at that time.; Status: F Lab Order: Lactic Acid (Villegas tube on ice); SPEC'M 10/16/16 17:22 Test: LACTIC ACID LEVEL, LACTATE; Value: 1.3; Range: 0.4-2.0; Units: MMOL/L; Status: F Outcome: 19:10 Discharge ordered by Provider. btw 19:17 Discharge Assessment: Patient awake, alert and oriented x 3. No cognitive and/or ck1 functional deficits noted. Patient verbalized understanding of disposition instructions. patient administered narcotics - no. The following High Risk Discharge criteria are identified: None. Discharged to home ambulatory. Condition: stable. Discharge instructions given to patient, Instructed on discharge instructions, follow up and referral plans. medication usage, Demonstrated understanding of instructions, medications, Pt was receptive of discharge instructions/ teaching. Prescriptions given X 1. No special radiology studies were completed. Property :Personal belongings accompany Pt. 19:18 Patient left the ED. ck1 Signatures: Dispatcher [employer] EDMS Delia Zayas, Reg Reg waldo Parisi, Darryn Chu RN RN mlb1 Ana TroyRN RN ck1 Parvez De Souza PA-C PA-Pratima ar2 Adam Chavarria PA PA btw Jaclyn Carrasco [place] cmb Conner, Teresa, RN RN ttb Crane, Kelsi,DAVID RN nevaeh3 Lamont Diaz,RN RN jf3 Kimberly Trujillo Chart Complete MTDD
== END 2016-10-16 19:18 | disposition home or self-care (01) ==
LOC: M ED 15:26
DX: J18.1 Lobar pneumonia, unspecified organism (principal); C43.60 Malignant melanoma of unspecified upper limb, including shoulder; J67.0 Farmer's lung; H40.20X0 Unspecified primary angle-closure glaucoma, stage unspecified; Z87.891 Personal history of nicotine dependence; Z79.899 Other long term (current) drug therapy
CPT/HCPCS: 36415; 80048; 83605; 85025; 87040; 96361; 96374; 96375; 99284; J2280; J2930

== ENCOUNTER → 2016-10-28 | Outpatient (CLI) | payer BC ==
--- NOTE | 2016-10-28 08:50 | REP ---
Chest x-ray: Two views. History: Abnormal lung prater. Follow-up pneumonia. Comparison chest x-ray November 07, 2015. Comparison is also made with the October 16, 2016 chest x-ray from [facility]. This showed a right lower lobe infiltrate. Findings: The right lower lobe infiltrate is cleared. The lungs are somewhat hyperinflated but free of infiltrate today. Pleural angles are sharp. Heart is not enlarged. Aorta is slightly tortuous as before. There are minimal degenerative changes in the thoracic spine. Impression: Mild hyperinflation. No acute infiltrate. Otherwise no acute disease. Signed by Parviz Neal MD 10/28/2016 10:18 A
== END | disposition home or self-care (01) ==
LOC: M SMT 07:59
PROVIDERS: ATTEND Internal Medicine Pulmonary Disease
DX: R91.8 Other nonspecific abnormal finding of lung field (principal)

== ENCOUNTER → 2017-12-29 | Outpatient (CLI) | payer BC ==
[2017-12-29 17:24] LABS: ALBUMIN 3.8 GM/DL (3.2-5.2); ALBUMIN/GLOBULIN RATIO 1.15 (1.00-1.93); ALKALINE PHOSPHATASE 80 U/L (45-117); ALT/SGPT 36 U/L (12-78); ANION GAP 4 MEQ/L (8-16); AST/SGOT 23 U/L (7-37); BILIRUBIN,TOTAL 0.5 MG/DL (0.2-1.0); BLOOD UREA NITROGEN 13 MG/DL (7-18); CALCIUM LEVEL 9.2 MG/DL (8.8-10.2); CARBON DIOXIDE LEVEL 32 MEQ/L (21-32); CHLORIDE LEVEL 106 MEQ/L (98-107); CHOLESTEROL LEVEL 175 MG/DL (<200); CHOLESTEROL RISK RATIO 2.692 (<5); CREATININE FOR GFR 0.78 MG/DL (0.55-1.30); GLOMERULAR FILTRATION RATE > 60.0 (>45); GLUCOSE, FASTING 83 MG/DL (70-100); HDL CHOLESTEROL 65 MG/DL (>40); LDL CHOLESTEROL 95.2 MG/DL (<100); NON-HDL-C 110 MG/DL; POTASSIUM SERUM 4.4 MEQ/L (3.5-5.1); SODIUM LEVEL 142 MEQ/L (136-145); TOTAL PROTEIN 7.1 GM/DL (6.4-8.2); TRIGLYCERIDES LEVEL 74 MG/DL (<150)
[2017-12-29 17:48] LABS: BASO # 0.1 10^3/uL (0.0-0.2); BASO % 0.8 % (0.0-1.0); EOS # 0.1 10^3/uL (0.0-0.50); EOS % 1.1 % (0.0-3.0); HEMATOCRIT 42.7 % (36.0-47.0); HEMOGLOBIN 13.9 g/dl (12.0-16.0); IMMATURE GRANULOCYTE % 0.3 % (0-3.0); LYMPH # 1.1 10^3/uL (1.5-4.5); MEAN CORPUSCULAR HEMOGLOBIN 32.3 pg (27.0-33.0); MEAN CORPUSCULAR HGB CONC 32.6 g/dl (32.0-36.5); MEAN CORPUSCULAR VOLUME 99.1 fl (80.0-96.0); MONO # 0.6 10^3/uL (0.0-0.8); MONO % 8.5 % (0.0-5.0); NEUTROPHILS # 4.8 10^3/uL (1.8-7.7); NEUTROPHILS % 73.3 % (36.0-66.0); PLATELET COUNT, AUTOMATED 293 10^3/uL (150-450); RED BLOOD COUNT 4.31 10^6/uL (4.00-5.40); RED CELL DISTRIBUTION WIDTH 11.7 % (11.5-14.5); WHITE BLOOD COUNT 6.6 10^3/uL (4.0-10.0)
== END ==
LOC: M WUC 11:17
DX: Z01.419 Encounter for gynecological examination (general) (routine) without abnormal findings (principal)
CPT/HCPCS: 80053

== ENCOUNTER 2018-05-05 09:39 | Day surgery (SDC) | payer BC ==
[~2018-05-05 09:39] MED LIST: LIDOCAINE 2% INJ 100 MG/5 ML SDV (FOR ANES.) As Ordered; PROPOFOL 200 MG/20 ML VIAL As Ordered
[2018-05-05] MEDS: NS 1,000 ML IV (09:45)
== END 2018-05-05 11:46 | disposition home or self-care (01) ==
LOC: M OPP 09:39
DX: Z12.11 Encounter for screening for malignant neoplasm of colon (principal); Z80.0 Family history of malignant neoplasm of digestive organs; J30.89 Other allergic rhinitis; Z87.891 Personal history of nicotine dependence
CPT/HCPCS: 45378

== ENCOUNTER → 2019-01-11 | Outpatient (REF) | payer OTHER ==
[~2019-01-11] MED LIST changes: +CALTCHW4 PO; +CENT1TAB19 PO; +FERR325T3 PO; -LIDOCAINE 2% INJ 100 MG/5 ML SDV (FOR ANES.) As Ordered; -PROPOFOL 200 MG/20 ML VIAL As Ordered; +QVAR80AE8 INH
== END ==
LOC: M LAB REF 17:08
PROVIDERS: ATTEND Family Medicine
DX: Z01.419 Encounter for gynecological examination (general) (routine) without abnormal findings (principal)

== ENCOUNTER → 2019-06-28 | Outpatient (CLI) | payer OTHER ==
[2019-06-28 12:54] LABS: BASO % 0.6 % (0.0-1.0); EOS # 0.1 10^3/uL (0.0-0.5); EOS % 2.1 % (0.0-3.0); HEMATOCRIT 41.7 % (36.0-47.0); HEMOGLOBIN 13.9 g/dl (12.0-15.5); LYMPH % 15.6 % (24.0-44.0); MEAN CORPUSCULAR HEMOGLOBIN 33.2 pg (27.0-33.0); MEAN CORPUSCULAR HGB CONC 33.3 g/dl (32.0-36.5); MEAN CORPUSCULAR VOLUME 99.5 fl (80.0-96.0); MONO # 0.6 10^3/uL (0.0-0.8); MONO % 8.8 % (0.0-5.0); NEUTROPHILS # 4.6 10^3/uL (1.5-8.5); NEUTROPHILS % 72.6 % (36.0-66.0); PLATELET COUNT, AUTOMATED 279 10^3/uL (150-450); RED BLOOD COUNT 4.19 10^6/uL (4.00-5.40); WHITE BLOOD COUNT 6.3 10^3/uL (4.0-10.0)
[2019-06-28 13:12] LABS: FERRITIN 254 NG/ML (8-252); IRON (FE) 116 UG/DL (50-170); PERCENT SATURATION 40.7 % (13.2-45.0); TOTAL IRON BINDING CAPACITY 285 UG/DL (250-450)
[2019-06-28 13:19] LABS: FOLATE > 24.0 NG/ML; VITAMIN B12 LEVEL 1502 PG/ML
== END ==
LOC: M WUC 10:13
PROVIDERS: ATTEND Physician Assistant
DX: D64.9 Anemia, unspecified (principal)

== ENCOUNTER → 2020-07-07 | Outpatient (CLI) | payer OTHER ==
[2020-07-07 12:31] LABS: BASO % 0.5 % (0.0-1.0); EOS # 0.1 10^3/uL (0.0-0.5); EOS % 1.3 % (0.0-3.0); HEMATOCRIT 42.4 % (36.0-47.0); HEMOGLOBIN 13.9 g/dl (12.0-15.5); LYMPH # 1.5 10^3/uL (1.5-5.0); LYMPH % 18.7 % (24.0-44.0); MEAN CORPUSCULAR HEMOGLOBIN 32.7 pg (27.0-33.0); MEAN CORPUSCULAR HGB CONC 32.8 g/dl (32.0-36.5); MEAN CORPUSCULAR VOLUME 99.8 fl (80.0-96.0); MONO # 0.5 10^3/uL (0.0-0.8); MONO % 6.7 % (0.0-5.0); NEUTROPHILS # 5.7 10^3/uL (1.5-8.5); NEUTROPHILS % 72.4 % (36.0-66.0); PLATELET COUNT, AUTOMATED 304 10^3/uL (150-450); RED BLOOD COUNT 4.25 10^6/uL (4.00-5.40); WHITE BLOOD COUNT 7.9 10^3/uL (4.0-10.0)
[2020-07-07 13:01] LABS: ALBUMIN 3.8 GM/DL (3.2-5.2); ALT/SGPT 25 U/L (12-78); BILIRUBIN,TOTAL 0.6 MG/DL (0.2-1.0); BLOOD UREA NITROGEN 13 MG/DL (7-18); CALCIUM LEVEL 9.5 MG/DL (8.8-10.2); CARBON DIOXIDE LEVEL 31 MEQ/L (21-32); CHLORIDE LEVEL 105 MEQ/L (98-107); FERRITIN 254 NG/ML (8-252); GLOMERULAR FILTRATION RATE > 60.0 (>45); GLUCOSE, FASTING 71 MG/DL (70-100); IRON (FE) 113 UG/DL (50-170); PERCENT SATURATION 38.2 % (13.2-45.0); POTASSIUM SERUM 4.3 MEQ/L (3.5-5.1); SODIUM LEVEL 140 MEQ/L (136-145); TOTAL IRON BINDING CAPACITY 296 UG/DL (250-450)
[2020-07-07 13:09] LABS: FOLATE > 24.0 NG/ML
[2020-07-07 13:24] LABS: VITAMIN B12 LEVEL 1489 PG/ML
== END ==
LOC: M WUC 10:05
PROVIDERS: ATTEND Physician Assistant
DX: D64.9 Anemia, unspecified (principal)

== ENCOUNTER → 2020-12-27 | Outpatient (CLI) | payer OTHER ==
[2020-12-27 09:58] LABS: BASO # 0.1 10^3/uL (0.0-0.2); BASO % 0.8 % (0.0-1.0); EOS # 0.1 10^3/uL (0.0-0.5); EOS % 2.2 % (0.0-3.0); HEMATOCRIT 41.9 % (36.0-47.0); HEMOGLOBIN 13.9 g/dl (12.0-15.5); LYMPH # 1.4 10^3/uL (1.5-5.0); MEAN CORPUSCULAR HEMOGLOBIN 32.9 pg (27.0-33.0); MEAN CORPUSCULAR HGB CONC 33.2 g/dl (32.0-36.5); MEAN CORPUSCULAR VOLUME 99.3 fl (80.0-96.0); MONO # 0.6 10^3/uL (0.0-0.8); MONO % 9.8 % (2.0-8.0); NEUTROPHILS % 64.9 % (36.0-66.0); PLATELET COUNT, AUTOMATED 278 10^3/uL (150-450); RED BLOOD COUNT 4.22 10^6/uL (4.00-5.40); WHITE BLOOD COUNT 6.2 10^3/uL (4.0-10.0)
[2020-12-27 10:26] LABS: CHOLESTEROL RISK RATIO 2.657 (<5); PERCENT SATURATION 36.9 % (13.2-45.0)
== END ==
LOC: M WUC 08:09
PROVIDERS: ATTEND Family Medicine
DX: D50.9 Iron deficiency anemia, unspecified (principal); Z13.220 Encounter for screening for lipoid disorders

== ENCOUNTER → 2021-01-10 | Outpatient (CLI) | payer OTHER ==
--- NOTE | 2021-01-10 11:35 | REPMRS ---
Patient History The patient states she has not had a clinical breast exam in over a year. Patient is postmenopausal. No known family history of cancer. 3D TOMOSYNTHESIS WAS PERFORMED. [facility]%. Volpara breast density c. Digital Woman Screen Mammo: January 10, 2021 - Exam #: [id number] Bilateral CC and MLO view(s) were taken. Technologist: Zhanna Noland, Technologist Prior study comparison: March 03, 2020, bilateral digital mammo screening bilat, performed at [facility]. January 11, 2019, bilateral digital mammo screening bilat, performed at [facility]. FINDINGS: The breast tissue is heterogeneously dense. This may lower the sensitivity of mammography. There has been no change in the appearance of the mammogram from the prior studies. There is a moderate amount of residual fibroglandular tissue which is fairly symmetric. There is no interval development of dominant mass, areas of architectural distortion, or clustered microcalcification typical of malignancy. Assessment: BI-RADS/ACR category 1 mammogram. Negative Mammogram. Recommendation Routine screening mammogram in 1 year (for women over age 40). This mammogram was interpreted with the aid of an FDA-approved computer-aided dectection system. Electronically Signed By: Josue Villegas MD 01/10/21 [id number]
--- NOTE | 2021-01-10 14:12 | DEXAMM ---
INDICATION: M85.80 [facility] DISRD OF BONE DENSITY AND STRUCTURE. COMPARISON: 01/11/2019 as well as other prior exams. TECHNIQUE: Bone density was measured using dual-energy x-ray absorptiometry (DEXA). FINDINGS: AP SPINE L1-L4 BMD 0.918 g/cm2 Young Adult T-Score -2.2 Age Matched Z-Score -0.7. LT FEMUR, TOTAL BMD 0.739 g/cm2 Young Adult T-Score -2.1 Age Matched Z-Score -1.0. LT NECK BMD 0.722 g/cm2 Young Adult T-Score -2.3 Age Matched Z-Score -0.9. RT FEMUR, TOTAL BMD 0.749 g/cm2 Young Adult T-Score -2.0 Age Matched Z-Score -0.9. RT NECK BMD 0.734 g/cm2 Young Adult T-Score -2.2 Age Matched Z-Score -0.8. IMPRESSION: There is low bone density of the spine. There is low bone density of the left hip. There is low bone density of the right hip. The density of the spine has decreased 19.5% since the initial exam on 05/06/2007. The density of the spine decreased 5.7% since most recent exam on 01/11/2019. The density of the left hip has decreased 19.5% since initial exam on 05/06/2007. The density of the left hip has increased 1.9% since most recent exam on 01/11/2019. The density of the right hip has decreased 19.8% since the initial exam on 05/06/2007. The density of the right hip has increased 2.7% since the most recent exam on 01/11/2019. FOLLOW-UP: Recommendation for the next bone density exam: 2 years. <Electronically signed by Josue Villegas > 01/10/21 [id number]
== END ==
LOC: M WHC 09:54
PROVIDERS: ATTEND Physician Assistant
DX: Z12.31 Encounter for screening mammogram for malignant neoplasm of breast (principal); M85.88 Other specified disorders of bone density and structure, other site; M85.851 Other specified disorders of bone density and structure, right thigh; M85.852 Other specified disorders of bone density and structure, left thigh

== ENCOUNTER → 2021-07-05 | Outpatient (REF) | payer OTHER ==
[2021-07-05 14:16] LABS: APPEARANCE, URINE CLEAR (CLEAR); BACTERIA, URINE AUTO NEGATIVE (NEGATIVE); BILIRUBIN, URINE AUTO NEGATIVE (NEGATIVE); BLOOD, URINE BLOOD NEGATIVE (NEGATIVE); COLOR, URINE YELLOW (YELLOW); GLUCOSE, URINE (UA) AUTO NEGATIVE (NEGATIVE); KETONE, URINE AUTO NEGATIVE (NEGATIVE); LEUKOCYTE ESTERASE, URINE AUTO NEGATIVE (NEGATIVE); NITRITE, URINE AUTO NEGATIVE (NEGATIVE); PROTEIN, URINE AUTO NEGATIVE (NEGATIVE); RBC, URINE AUTO 1 /HPF (0-3); SPECIFIC GRAVITY URINE AUTO 1.006 (1.002-1.035); SQUAMOUS EPITHELIAL CELL UR AU 1 /HPF (0-6); UROBILINOGEN, URINE AUTO 0.2 mg/dL (0.0-2.0); WBC, URINE AUTO 0 /HPF (0-3)
== END ==
LOC: M SMT 13:23
PROVIDERS: ATTEND Urology
DX: R31.29 Other microscopic hematuria (principal)

== ENCOUNTER → 2021-07-05 | Outpatient (CLI) | payer OTHER ==
[2021-07-05 20:53] LABS: BLOOD UREA NITROGEN 14 MG/DL (7-18); CALCIUM LEVEL 9.6 MG/DL (8.8-10.2); CARBON DIOXIDE LEVEL 33 MEQ/L (21-32); CHLORIDE LEVEL 103 MEQ/L (98-107); CREATININE FOR GFR 0.89 MG/DL (0.55-1.30); GLOMERULAR FILTRATION RATE > 60.0 (>45); GLUCOSE, FASTING 85 MG/DL (70-100); SODIUM LEVEL 140 MEQ/L (136-145)
== END ==
LOC: M WUC 15:48
PROVIDERS: ATTEND Urology
DX: R31.29 Other microscopic hematuria (principal)

== ENCOUNTER → 2021-07-18 | Outpatient (CLI) | payer OTHER ==
[~2021-07-18] MED LIST changes: +ISOVUE-370 76% 100ML VIAL As Ordered ONE
--- NOTE | 2021-07-18 14:45 | REP ---
INDICATION: HEMATURIA. COMPARISON: None. TECHNIQUE: Standard helical technique before and after the intravenous administration of 100 cc Isovue 370. MIP reformatted 3D images of the renal collecting system was also obtained bilaterally. FINDINGS: The lung bases are clear. The pre contrast enhanced portion examination shows no evidence of nephroureterolithiasis, hydronephrosis, or hydroureter. There are no urinary bladder calcifications. There are bilateral pelvic phleboliths. Multiple low-density lesions are seen in the liver. The contrast-enhanced portion examination shows a peripherally enhancing 3.3 x 2.6 x 3.9 cm sized lesion in the anterior segment the right lobe on the arterial phase imaging with persistent homogeneous enhancement to the point where the lesion is near isodense to the liver on delayed imaging. Delayed imaging, however, is beyond the portal venous phase of enhancement. All other much smaller focal lesions show no measurable contrast-enhancement. The spleen, pancreas, adrenal glands, and kidneys are within normal limits. There is an incidental 7 mm sized focal area of decreased density in the left kidney inferior pole which shows no evidence of measurable contrast-enhancement. The bowel loops and the mesenteries are within normal limits. There is no evidence of a mass or adenopathy. There is no evidence of free fluid or free air. Delayed imaging shows the a pacified portion of each renal collecting system to be unremarkable. No filling defects are identified. The distal aspect of each ureter is non-opacified. The contrast opacified portion of the urinary bladder shows no evidence of a filling defect. Bone window technique throughout the examination shows spinal degenerative changes particularly at L4-5 IMPRESSION: 1. There is a small simple Bosniak class 1 left renal cyst as described above. 2. There is a lesion in the anterior segment of the right lobe of the liver as described above which does not have the typical enhancement pattern of a benign hemangioma. However, should be stated that the delayed imaging on this examination is well beyond the portal venous stage of imaging. This potentially represents an atypical benign hemangioma. Pre and post gadolinium enhanced hepatic MRI is recommended for further evaluation 3. Multiple sub cm sized simple hepatic cysts and a 1.3 cm sized cyst in the posterior segment the right lobe of the liver. 4. Other findings as described above. <Electronically signed by Watson Friedman > 07/18/21 [id number]
== END ==
LOC: M RAD 13:02
PROVIDERS: ATTEND Urology
DX: R93.5 Abnormal findings on diagnostic imaging of other abdominal regions, including retroperitoneum (principal); R31.29 Other microscopic hematuria
CPT/HCPCS: 74178; Q9967

== ENCOUNTER → 2021-10-17 | Outpatient (CLI) | payer OTHER ==
[~2021-10-17] MED LIST changes: -ISOVUE-370 76% 100ML VIAL As Ordered ONE
[2021-10-17 14:01] LABS: BLOOD UREA NITROGEN 13 MG/DL (7-18); CALCIUM LEVEL 9.4 MG/DL (8.8-10.2); CARBON DIOXIDE LEVEL 30 MEQ/L (21-32); CHLORIDE LEVEL 107 MEQ/L (98-107); CREATININE FOR GFR 0.76 MG/DL (0.55-1.30); GLOMERULAR FILTRATION RATE > 60.0 (>45); GLUCOSE, FASTING 81 MG/DL (70-100); POTASSIUM SERUM 4.6 MEQ/L (3.5-5.1); SODIUM LEVEL 141 MEQ/L (136-145)
== END ==
LOC: M PLALAB 10:50
PROVIDERS: ATTEND Urology
DX: R31.1 Benign essential microscopic hematuria (principal)

== ENCOUNTER → 2021-10-26 | Outpatient (CLI) | payer OTHER | LOC: M PLARAD 14:09 | PROVIDERS: ATTEND Urology | DX: N28.1 Cyst of kidney, acquired (principal) ==

== ENCOUNTER → 2022-01-21 | Outpatient (CLI) | payer MEDICARE | LOC: M WHC 14:00 | PROVIDERS: ATTEND Family Medicine | DX: Z12.31 Encounter for screening mammogram for malignant neoplasm of breast (principal) ==

== ENCOUNTER → 2022-03-14 | Outpatient (REF) | payer MEDICARE, OTHER ==
[2022-03-14 17:38] LABS: AMORPHOUS SEDIMENT SMALL (NEGATIVE); APPEARANCE, URINE CLEAR (CLEAR); BACTERIA, URINE AUTO NEGATIVE (NEGATIVE); BILIRUBIN, URINE AUTO NEGATIVE (NEGATIVE); BLOOD, URINE BLOOD NEGATIVE (NEGATIVE); COLOR, URINE STRAW (YELLOW); GLUCOSE, URINE (UA) AUTO NEGATIVE (NEGATIVE); KETONE, URINE AUTO NEGATIVE (NEGATIVE); LEUKOCYTE ESTERASE, URINE AUTO NEGATIVE (NEGATIVE); NITRITE, URINE AUTO NEGATIVE (NEGATIVE); PROTEIN, URINE AUTO NEGATIVE (NEGATIVE); RBC, URINE AUTO 0 /HPF (0-3); SPECIFIC GRAVITY URINE AUTO 1.004 (1.002-1.035); SQUAMOUS EPITHELIAL CELL UR AU 0 /HPF (0-6); UROBILINOGEN, URINE AUTO 0.2 mg/dL (0.0-2.0); WBC, URINE AUTO 0 /HPF (0-3)
== END ==
LOC: M SMT 16:42
PROVIDERS: ATTEND Physician Assistant
DX: R31.29 Other microscopic hematuria (principal)

== ENCOUNTER → 2023-01-22 | Outpatient (CLI) | payer MEDICARE | LOC: M WHC 10:18 | PROVIDERS: ATTEND Family Medicine | DX: Z12.31 Encounter for screening mammogram for malignant neoplasm of breast (principal); M81.0 Age-related osteoporosis without current pathological fracture ==

== ENCOUNTER → 2023-03-06 | Outpatient (CLI) | payer MEDICARE ==
[2023-03-06 13:03] LABS: APPEARANCE, URINE CLEAR (CLEAR); BACTERIA, URINE AUTO NEGATIVE (NEGATIVE); BILIRUBIN, URINE AUTO NEGATIVE (NEGATIVE); BLOOD, URINE BLOOD NEGATIVE (NEGATIVE); COLOR, URINE YELLOW (YELLOW); GLUCOSE, URINE (UA) AUTO NEGATIVE (NEGATIVE); KETONE, URINE AUTO NEGATIVE (NEGATIVE); LEUKOCYTE ESTERASE, URINE AUTO NEGATIVE (NEGATIVE); NITRITE, URINE AUTO NEGATIVE (NEGATIVE); PROTEIN, URINE AUTO NEGATIVE (NEGATIVE); RBC, URINE AUTO 0 /HPF (0-3); SPECIFIC GRAVITY URINE AUTO 1.012 (1.002-1.035); SQUAMOUS EPITHELIAL CELL UR AU 1 /HPF (0-6); UROBILINOGEN, URINE AUTO 0.2 mg/dL (0.0-2.0); WBC, URINE AUTO 0 /HPF (0-3)
== END ==
LOC: M WUC 10:26
PROVIDERS: ATTEND Physician Assistant
DX: R31.29 Other microscopic hematuria (principal)

== ENCOUNTER → 2024-01-26 | Outpatient (CLI) | payer MEDICARE | LOC: M WHC 07:49 | PROVIDERS: ATTEND Family Medicine | DX: Z12.31 Encounter for screening mammogram for malignant neoplasm of breast (principal) ==

== ENCOUNTER → 2024-03-08 | Outpatient (REF) | payer MEDICARE ==
[2024-03-08 16:34] LABS: APPEARANCE, URINE CLEAR (CLEAR); BACTERIA, URINE AUTO NEGATIVE (NEGATIVE); BILIRUBIN, URINE AUTO NEGATIVE (NEGATIVE); BLOOD, URINE BLOOD NEGATIVE (NEGATIVE); COLOR, URINE YELLOW (YELLOW); GLUCOSE, URINE (UA) AUTO NEGATIVE (NEGATIVE); KETONE, URINE AUTO NEGATIVE (NEGATIVE); LEUKOCYTE ESTERASE, URINE AUTO NEGATIVE (NEGATIVE); NITRITE, URINE AUTO NEGATIVE (NEGATIVE); PROTEIN, URINE AUTO NEGATIVE (NEGATIVE); RBC, URINE AUTO 3 /HPF (0-3); SPECIFIC GRAVITY URINE AUTO 1.011 (1.002-1.035); SQUAMOUS EPITHELIAL CELL UR AU 1 /HPF (0-6); UROBILINOGEN, URINE AUTO 0.2 mg/dL (0.0-2.0); WBC, URINE AUTO 1 /HPF (0-3)
== END ==
LOC: M SMT 16:19
PROVIDERS: ATTEND Physician Assistant
DX: R31.29 Other microscopic hematuria (principal)

== ENCOUNTER → 2024-07-06 | Outpatient (CLI) | payer MEDICARE ==
[2024-07-06 12:03] LABS: BASO % 0.6 % (0.0-1.0); EOS # 0.1 10^3/uL (0.0-0.5); EOS % 1.9 % (0.0-3.0); HEMATOCRIT 38.9 % (36.0-47.0); HEMOGLOBIN 12.9 g/dl (12.0-15.5); LYMPH # 1.3 10^3/uL (1.5-5.0); LYMPH % 18.7 % (24.0-44.0); MEAN CORPUSCULAR HEMOGLOBIN 32.9 pg (27.0-33.0); MEAN CORPUSCULAR HGB CONC 33.2 g/dl (32.0-36.5); MEAN CORPUSCULAR VOLUME 99.2 fl (80.0-96.0); MONO # 0.6 10^3/uL (0.0-0.8); MONO % 8.5 % (2.0-8.0); NEUTROPHILS # 4.7 10^3/uL (1.5-8.5); PLATELET COUNT, AUTOMATED 292 10^3/uL (150-450); RED BLOOD COUNT 3.92 10^6/uL (4.00-5.40); WHITE BLOOD COUNT 6.7 10^3/uL (4.0-10.0)
[2024-07-06 12:10] LABS: THYROID STIMULATING HORMONE 2.114 uIU/ML (0.55-4.78); TOTAL IRON BINDING CAPACITY 301 UG/DL (250-425)
[2024-07-06 12:11] LABS: FERRITIN 193.2 NG/ML (7.3-270.7); FREE T4 1.47 NG/DL (0.89-1.76); IRON (FE) 84 UG/DL (50-170); PERCENT SATURATION 27.9 % (13.2-45.0); VITAMIN B12 LEVEL 1125 PG/ML (211-911)
[2024-07-06 12:12] LABS: ALBUMIN 3.7 G/DL (3.2-5.2); ALKALINE PHOSPHATASE 68 U/L (46-116); ALT/SGPT 18 U/L (7.0-40); AST/SGOT 16 U/L (<34); BILIRUBIN,TOTAL 0.5 MG/DL (0.3-1.2); BLOOD UREA NITROGEN 17 MG/DL (9-23); CALCIUM LEVEL 9.7 MG/DL (8.3-10.6); CARBON DIOXIDE LEVEL 31 MMOL/L (20-31); CHLORIDE LEVEL 106 MMOL/L (98-107); CHOLESTEROL LEVEL 182 MG/DL (<200); CHOLESTEROL RISK RATIO 3.34 (<5); CREATININE FOR GFR 0.81 MG/DL (0.55-1.30); GLOMERULAR FILTRATION RATE > 60.0 (>45); GLUCOSE, FASTING 81 MG/DL (74-106); HDL CHOLESTEROL 54.4 MG/DL (>40); NON-HDL-C 127.6 MG/DL; POTASSIUM SERUM 4.2 MMOL/L (3.5-5.1); SODIUM LEVEL 139 MMOL/L (136-145); TOTAL PROTEIN 6.6 G/DL (5.7-8.2); TRIGLYCERIDES LEVEL 68 MG/DL (<150)
== END ==
LOC: M WUC 08:56
PROVIDERS: ATTEND Family Medicine
DX: D50.9 Iron deficiency anemia, unspecified (principal); E78.00 Pure hypercholesterolemia, unspecified

== ENCOUNTER → 2025-01-27 | Outpatient (CLI) | payer MEDICARE | LOC: M WHC 08:48 | PROVIDERS: ATTEND Family Medicine | DX: Z12.31 Encounter for screening mammogram for malignant neoplasm of breast (principal) ==

== ENCOUNTER → 2025-07-11 | Outpatient (CLI) | payer MEDICARE ==
[2025-07-11 13:00] LABS: BASO # 0.0 10^3/uL (0.0-0.2); BASO % 0.5 % (0.0-1.0); EOS # 0.1 10^3/uL (0.0-0.5); EOS % 1.4 % (0.0-3.0); LYMPH # 1.5 10^3/uL (1.5-5.0); LYMPH % 20.2 % (24.0-44.0); MONO # 0.5 10^3/uL (0.0-0.8); MONO % 7.3 % (2.0-8.0); NEUTROPHILS # 5.1 10^3/uL (1.5-8.5); NEUTROPHILS % 70.3 % (36.0-66.0); PLATELET COUNT, AUTOMATED 324 10^3/uL (150-450)
[2025-07-11 13:01] LABS: ALT/SGPT 17 U/L (7.0-40); AST/SGOT 21 U/L (<34); CALCIUM LEVEL 9.3 MG/DL (8.3-10.6); CARBON DIOXIDE LEVEL 30 MMOL/L (20-31); CHLORIDE LEVEL 103 MMOL/L (98-107); CHOLESTEROL LEVEL 175 MG/DL (<200); CHOLESTEROL RISK RATIO 2.74 (<5); CREATININE FOR GFR 0.80 MG/DL (0.55-1.30); GLOMERULAR FILTRATION RATE 80.2 (>45); IRON (FE) 106 UG/DL (50-170); LDL CHOLESTEROL 91.6 MG/DL (<100); NON-HDL-C 111.2 MG/DL; PERCENT SATURATION 38.0 % (13.2-45.0); POTASSIUM SERUM 4.2 MMOL/L (3.5-5.1); SODIUM LEVEL 142 MMOL/L (136-145); TRIGLYCERIDES LEVEL 98 MG/DL (<150)
[2025-07-11 13:02] LABS: VITAMIN B12 LEVEL 1197 PG/ML (211-911)
[2025-07-11 13:05] LABS: FREE T4 1.50 NG/DL (0.89-1.76)
== END ==
LOC: M WUC 08:50
PROVIDERS: ATTEND Family Medicine
DX: D50.9 Iron deficiency anemia, unspecified (principal); E78.00 Pure hypercholesterolemia, unspecified

== ENCOUNTER → 2025-08-16 | Outpatient (CLI) | payer MEDICARE | LOC: M WHC 13:10 | PROVIDERS: ATTEND Family Medicine | DX: M81.0 Age-related osteoporosis without current pathological fracture (principal) ==